=== PATIENT | female | born 1985 | race Caucasian/White ===

== ENCOUNTER 2017-10-02 07:05 | Emergency (ER) | payer SELFPAY ==
[2017-10-02 07:20] VITALS: BP 119/84; TEMP 98; O2SAT 97
--- NOTE | 2017-10-02 07:24 | ED.PDOC ---
History of Present Illness - General Chief Complaint: Eye Problems Stated Complaint: R eye irritation Time Seen by Provider: 10/02/17 07:17 Source: patient Exam Limitations: no limitations - History of Present Illness Initial Comments: pt here for mild sweeling of eyelids on right just since this am. no fever or vision changes. mild discomfort. no contacts. no trauma, recent allergy or cold symptoms. Timing/Duration: 4-6 hours Severity: mild Improving Factors: nothing Worsening Factors: nothing Associated Symptoms: denies symptoms Allergies/Adverse Reactions: Allergies NO KNOWN ALLERGY Allergy (Unverified 06/25/15 11:11) Home Medications: Ambulatory Orders Sulfa/Trimeth 800/160 (Ds) Tab [Bactrim DS Tab] 1 ea PO BID #10 tab 10/02/17 Review of Systems - Review of Systems Constitutional: States: no symptoms reported EENTM: States: see HPI Respiratory: States: no symptoms reported Cardiology: States: no symptoms reported Gastrointestinal/Abdominal: States: no symptoms reported Genitourinary: States: no symptoms reported Musculoskeletal: States: no symptoms reported Skin: States: no symptoms reported Neurological: States: no symptoms reported Endocrine: States: no symptoms reported All other Systems: No Change from Baseline Past Medical History (General) - Patient Medical History Hx Seizures: No Hx Stroke: No Hx Dementia: No Hx Asthma: No Hx of COPD: No Hx Cardiac Disorders: No Hx Congestive Heart Failure: No Hx Pacemaker: No Hx Hypertension: No Hx Thyroid Disease: No Hx Diabetes: No Hx Gastroesophageal Reflux: No Hx Renal Disease: No Hx Cancer: No Hx of HIV: No Hx Hepatitis C: No Hx MRSA: No Surgical History: appendectomy, tonsillectomy - Vaccination History Hx Tetanus, Diphtheria Vaccination: No Hx Influenza Vaccination: No Hx Pneumococcal Vaccination: No - Social History Hx Tobacco Use: No Hx Alcohol Use: No Hx Substance Use: No Hx Substance Use Treatment: No Hx Depression: No Hx Physical Abuse: No Hx Emotional Abuse: No Hx Suspected Abuse: No - Female History Patient is a Female of Child Bearing Age (10 -59 yrs old): Yes Patient : No Family Medical History - Family History Mother Living Status: Still Living Hx Family Asthma: Yes Hx Family Hypertension: Yes Hx Cardiac Disease: Yes Hx Family;Other: copd Physical Exam - Physical Exam General Appearance: Alert, Comfortable, No apparent distress Eye Exam: bilateral normal, bilateral other - mild right upper eyelid [id number]. 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 will treat with bactrim, warm compress. 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 er warnings given. Departure - Departure Clinical Impression: Blepharitis Qualifiers: Blepharitis type: unspecified type Laterality: right Eyelid: upper Qualified Code(s): H01.001 - Unspecified blepharitis right upper eyelid Disposition: Discharge to Home or Self Care Condition: Fair Departure Forms: ED Discharge - Pt. Copy, Patient Portal Self Enrollment Instructions: DI for Blepharitis Diet: regular diet Activity: increase activity as tolerated Referrals: Ruby Kyle, [facility] [Primary Care Provider] - 1-2 Weeks Prescriptions: Sulfa/Trimeth 800/160 (Ds) Tab [Bactrim DS Tab] 1 ea PO BID #10 tab Home Medications: Ambulatory Orders Sulfa/Trimeth 800/160 (Ds) Tab [Bactrim DS Tab] 1 ea PO BID #10 tab 10/02/17 Additional Instructions: pt appears to have early blepharitis on the right. will treat with bactrim, warm compress. 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 er warnings given.
== END 2017-10-02 07:29 | disposition home or self-care (01) ==
LOC: ER 07:05
DX: H01.001 Unspecified blepharitis right upper eyelid (principal)